=== PATIENT | female | born 1950 | race Caucasian/White ===

== ENCOUNTER 2022-09-25 06:13 | Inpatient (IN) ==
[2022-09-19 13:28] LABS: Basophils # (Auto) 0.05 K/mcL (0.00-0.30); Basophils % (Auto) 0.6 % (0.0-2.0); Eosinophils # (Auto) 0.16 K/mcL (0.00-0.70); Eosinophils % (Auto) 1.8 % (0.0-7.0); Hematocrit 41.3 % (34.1-44.9); Hemoglobin 13.8 g/dL (11.2-15.7); Lymphocytes # (Auto) 1.89 K/mcL (1.50-4.80); Lymphocytes % (Auto) 21.7 % (15.5-49.0); Mean Cell Volume 89.6 fL (80.0-100.0); Mean Corpuscular HGB Conc 33.4 g/dL (31.0-36.0); Mean Platelet Volume 11.6 fL (8.8-12.5); Monocytes # (Auto) 0.55 K/mcL (0.10-0.90); Monocytes % (Auto) 6.3 % (1.0-12.0); Neutrophils % (Auto) 69.1 % (38.0-78.0); Platelet Count 207 K/mcL (140-440); RBC 4.61 M/mcL (3.59-5.38); Red Cell Distribution Width 12.8 % (11.5-14.5); WBC 8.7 K/mcL (4.5-11.0)
[2022-09-19 13:55] LABS: ALT/SGPT 6 U/L (<40); AST/SGOT 21 U/L (<32); Albumin 4.3 gm/dL (3.2-5.2); Alkaline Phosphatase 58 U/L (39-117); Bilirubin,Total 0.5 mg/dL (0.1-1.0); Blood Urea Nitrogen 13 mg/dL (8-23); Calcium 9.2 mg/dL (8.6-10.4); Carbon Dioxide 26 mmol/L (22-30); Chloride 105 mmol/L (96-108); Globulin 2.2 gm/dL (2.2-3.7); Glomerular Filtration Rate 88; Glucose 90 mg/dL (70-105)
[2022-09-19 15:10] LABS: Prothrombin Time 13.6 sec (11.9-14.5)
--- NOTE | 2022-09-20 13:48 | EKG ---
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
[2022-09-20 14:25] LABS: Appearance,Urine CLEAR (Clear); Bacteria,Urine FEW /hpf (0); Bilirubin,Urine NEGATIVE (Negative); Color,Urine LT. YELLOW; Culture Indicated,Urine Yes; Glucose,Urine (UA) NEGATIVE (Negative); Ketones,Urine NEGATIVE (Negative); Leukocyte Esterase,Urine SMALL /uL (Negative); Mucus,Urine MOD /hpf; Nitrate,Urine NEGATIVE (Negative); PH,Urine 7.5 (5.0-9.0); Protein,Urine NEGATIVE (Negative); Sperm,Urine ABSENT /hpf (Absent); Urine Blood NEGATIVE ery/mcL (Negative); Urine Granular Cast 1 /lph (0-0); Urine RBC 1 /hpf (0-3); Urine Squamous Epithelial Cell 1 /hpf (0-4); Urine WBC 2 /hpf (0-4); Urobilinogen,Urine Normal
[~2022-09-25 06:13] MED LIST: IPRATROPIUM/ALBUTEROL 3 ML AMPUL.NEB NEB PRN; SCOPOLAMINE 1 PATCH PATCH TOPICAL PRN; ceFAZolin 2 GM in DEXTROSE 5% IN WATER 50 ML IV SCH
[2022-09-25] MEDS ORDERED: ONDANSETRON 4 MG/2 ML VIAL ONE (09:47)
[2022-09-25] MEDS ORDERED: MAGNESIUM SULFATE 4 GM/100 ML BAG IV ONE (09:47)
[2022-09-25] MEDS ORDERED: LIDOCAINE HCL/PF 100 MG/5 ML SYRINGE IV ONE (09:47)
[2022-09-25] MEDS ORDERED: MIDAZOLAM 2 MG/2 ML VIAL ONE (09:47)
[2022-09-25] MEDS ORDERED: ePHEDrine 50 MG/5 ML SYRINGE (ANEST) IV ONE (09:47)
[2022-09-25] MEDS ORDERED: PROPOFOL 200 MG/20 ML VIAL IV ONE (09:47)
[2022-09-25] MEDS ORDERED: SUCCINYLCHOLINE 20 MG/ML ML IV ONE (09:47)
[2022-09-25] MEDS ORDERED: HYDROmorphone 0.5 MG/0.5 ML SYRINGE ONE (09:47)
[2022-09-25] MEDS ORDERED: PHENYLephrine 1 MG/10 ML SYRINGE (ANEST) ONE (09:47)
[2022-09-25] MEDS ORDERED: DEXAMETHASONE 10 MG/ML VIAL ONE (09:47)
[2022-09-25] MEDS ORDERED: ceFAZolin 1 GM VIAL ONE (09:47)
[2022-09-25] MEDS ORDERED: TRANEXAMIC ACID 1,000 MG/10 ML VIAL ONE (09:47)
[2022-09-25] MEDS ORDERED: fentaNYL 100 MCG/2 ML VIAL IV ONE (09:47)
[2022-09-25] MEDS ORDERED: KETAMINE 50 MG/ML Syringe (ANEST) IV ONE (09:47)
[2022-09-25] MEDS ORDERED: THROMBIN (BOVINE) 5,000 UNIT VIAL TOPICAL ONE (10:00)
[2022-09-25] MEDS ORDERED: BUPIVACAINE 0.25% 50 ML VIAL IJ ONE (10:00)
[2022-09-25] MEDS ORDERED: GELATIN SPONGE,ABSORBABLE 1 EACH SPONGE TOPICAL ONE (10:00)
[2022-09-25] MEDS ORDERED: VANCOMYCIN 1 GM VIAL TOPICAL SCH (13:45)
--- NOTE | 2022-09-25 14:01 | EKG ---
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
[2022-09-25] MEDS ORDERED: ONDANSETRON 4 MG ODT TABLET SL PRN (14:02)
[2022-09-25] MEDS ORDERED: PROMETHAZINE 25 MG/ML VIAL IV PRN (14:02)
[2022-09-25] MEDS ORDERED: ONDANSETRON 4 MG/2 ML VIAL IV PRN (14:02)
[2022-09-25] MEDS ORDERED: FUROSEMIDE 20 MG TABLET PO PRN (14:06)
[2022-09-25] MEDS ORDERED: ONDANSETRON (PP) 4 MG TABLET PO PRN (14:06)
[2022-09-25] MEDS ORDERED: valACYclovir 500 MG TABLET PO PRN (14:06)
[2022-09-25] MEDS ORDERED: POTASSIUM CHLORIDE 8 MEQ PO PRN (14:18)
[2022-09-25] MEDS ORDERED: LIDOCAINE 1.8% TOPICAL PRN (14:22)
[2022-09-25] MEDS ORDERED: HYDROmorphone 0.5 MG/0.5 ML SYRINGE IV PRN (14:25)
[2022-09-25] MEDS ORDERED: ACETAMINOPHEN 1,000 MG/100 ML BAG IV ONE (14:25)
[2022-09-25] MEDS ORDERED: METOPROLOL TARTRATE 5 MG/5 ML VIAL IV PRN (14:25)
[2022-09-25] MEDS ORDERED: fentaNYL 100 MCG/2 ML VIAL IV PRN (14:25)
[2022-09-25] MEDS ORDERED: LACTATED RINGERS 250 ML IV PRN (14:25)
[2022-09-25] MEDS ORDERED: METHOCARBAMOL 1,000 MG/10 ML VIAL IV PRN (14:25)
[2022-09-25] MEDS ORDERED: IPRATROPIUM/ALBUTEROL 3 ML AMPUL.NEB NEB PRN (14:25)
[2022-09-25] MEDS ORDERED: MEPERIDINE 25 MG/ML VIAL IV PRN (14:25)
[2022-09-25] MEDS ORDERED: LABETALOL 5 MG/ML ML IV PRN (14:25)
[2022-09-25] MEDS ORDERED: NALOXONE HCL 0.4 MG/ML VIAL IV PRN (14:25)
[2022-09-25] MEDS ORDERED: FLUMAZENIL 0.1 MG/ML ML IV PRN (14:25)
[2022-09-25] MEDS ORDERED: LACTATED RINGERS 1,000 ML IV SCH (14:30)
[2022-09-25] MEDS: 0.9 % SODIUM CHLORIDE 1,000 ML IV SCH (16:56)
[2022-09-25] MEDS: CARBIDOPA/LEVODOPA 25/100 TABLET PO SCH ×2 (17:23→19:58)
[2022-09-25] MEDS: ceFAZolin 1 GM VIAL IV SCH (19:00)
[2022-09-25] MEDS: HYDROCODONE/APAP 7.5/325MG TABLET PO PRN (19:58)
[2022-09-25] MEDS: DOCUSATE SODIUM 100 MG CAPSULE PO SCH (19:58)
[2022-09-25] MEDS: 0.9 % SODIUM CHLORIDE 10 ML SYRINGE IV SCH (22:09)
[2022-09-25] MEDS: METHOCARBAMOL 750 MG TABLET PO PRN (22:22)
[2022-09-26] MEDS: HYDROCODONE/APAP 7.5/325MG TABLET PO PRN ×4 (00:09→19:43)
[2022-09-26] MEDS: 0.9 % SODIUM CHLORIDE 1,000 ML IV SCH ×3 (02:14→22:34)
[2022-09-26] MEDS: ceFAZolin 1 GM VIAL IV SCH (02:15)
[2022-09-26 06:45] LABS: Hemoglobin 10.8 g/dL (11.2-15.7)
[2022-09-26 07:05] LABS: Blood Urea Nitrogen 11 mg/dL (8-23); Calcium 7.5 mg/dL (8.6-10.4); Carbon Dioxide 24 mmol/L (22-30); Chloride 105 mmol/L (96-108); Glomerular Filtration Rate 98; Glucose 86 mg/dL (70-105)
--- NOTE | 2022-09-26 07:28 | General Surgery Progress Note ---
SUBJECTIVE Subjective Patient information: Note initiated : 09/26/22 at 7:27 am Service Date, if different from initiated Date: [] Patient: Omaira Garvey 72 y/o F admitted on 09/25/22 for L4-5 Extreme Lateral Interbody Fusion W/Posterior . Chief Complaint: [] Principal diagnosis: stenosis Interval history: negative Constitutional Vitals: Vital Signs Temp Pulse Resp BP Pulse Ox O2 Del Method O2 Flow Rate 97.7 F 77 20 128/61 96 Room Air 0 09/26/22 02:55 09/26/22 02:55 09/26/22 02:55 09/26/22 02:55 09/26/22 02:55 09/26/22 02:55 09/25/22 19:35 Period Temp Pulse Resp BP Sys/Cooper Pulse Ox O2 Del Method O2 Flow Rate Last 24 Hr 97.7 F-101.7 F 77-94 0-22 88-149/48-75 88-97 Nasal Cannula- Simple Mask 0-6 Intake and Output 09/25/22 09/26/22 09/26/22 19:59 03:59 11:59 Intake Total 2900 1130 Output Total 1270 290 75 Balance 1630 840 -75 Weight 217 lb 8 oz Intake & Output: Intake & Output 09/25/22 09/26/22 09/26/22 19:59 03:59 11:59 Intake Total 2900 1130 Output Total 1270 290 75 Balance 1630 840 -75 Weight 217 lb 8 oz Intake: IV 100 930 Sodium Chloride 0.9% 1,000 ml @ 930 100 mls/hr IV .Q10H [facility] Rx#: [id number] Oral 200 IV - Manual Only 2800 Output: Drainage 20 15 0 Lower Back 20 15 0 Urine Catheter Amount 1150 Uretheral (Cleaning) 550 Void Amount 275 75 Estimated Blood Loss 100 Other: Urine Appearance Clear Clear Clear Uretheral (Cleaning) Clear Urine Color Dark Yellow Dark Yellow Dark Yellow Uretheral (Cleaning) Yellow Additional findings Additional findings: neuro intact A/P Assessment and plan (1) Spinal stenosis at L4-L5 level: Status: Acute Comment: post op Plan mobilize with pt Time Spent With Patient Time: Total time spent is greater than 50% in coordination of care (as documented) at patient's floor/unit and/or counseling patient:
--- NOTE | 2022-09-26 07:30 | Discharge Summary ---
Discharge Provider Provider IMPORTANT FOLLOW-UP INFORMATION FOR PCP: bing Patient information: Note initiated : 09/26/22 at 7:28 am Service Date, if different from initiated Date: [] Patient: Omaira Garvey 72 y/o F admitted on 09/25/22 for L4-5 Extreme Lateral Interbody Fusion W/Posterior . Chief Complaint: [] Date of admission: 09/25/22 06:13 Discharge date: 09/27/22 Primary care physician: Beltran Kirkpatrick DO Admitting clinician: Aditya Clark COURSE Hospital Course Hospital course: uneventful Discharge diagnosis: spinal stenosis with instability Time Spent with Patient Time attestation: Total time spent providing and/or coordinating discharge services: Time spent: Less than 30 minutes Physical Examination Exam Incision healing: Yes Weight bearing status: full Discharge Instructions - Spine Patient Instructions Spine Protocol: Limit bending and stooping. No heavy lifting. Wear brace/collar at all times except when showering and sleeping. Additional Dressing Instructions: May Shower 48 hours post-operative and replace with dry dressing after shower. Discharge Plan Patient/Caregiver Discharge Instructions Activity: ambulate only with your walker Instructions: Hydrocodone/Acetaminophen (By mouth), Lumbar Spinal Fusion (DC) Activity Restrictions/Additional Instructions: Patient Instructions Limit bending, twisting, and stooping. No heavy lifting. Wear brace at all times except when showering and sleeping. May Shower tomorrow, September 27, and replace with dry dressing after shower. Every day, remove old gauze, then replace with new 4x4 gauze, secure with paper tape. Your prescription is with your discharge information. Take your prescription, photo ID, and insurance cards to cotton picker operator your medication. Resume home medications. If you have any questions or concerns call your orthopedic surgeon before going to the emergency room. [facility] has a strategy execution consultant physician 24 hours per day/7 days per week and can be reached at [phone]. Call for fevers above 100.5 or pain not controlled by medication. This discharge packet is provided to you to help keep you informed about your care. We want to ensure you get everything you need when you go home. You will also be receiving a call from us in a few days to follow up with you and see how you are doing since your discharge. This gives us a chance to listen to any concerns you maybe experiencing since you were discharged or any additional needs you may have, as well as providing us feedback on your care experience. We strive to always provide excellent care and thank you for your feedback and for choosing [facility]. Prescriptions: New hydrocodone-acetaminophen 7.5-325 mg Tablet 1 - 2 tab PO Q4HP PRN (Reason: Per Pain Protocol) Qty: 0 0RF Continued propranolol 80 mg capsule,extended release 24hr 80 mg PO QDAY Qty: 90 1RF fenofibrate nanocrystallized 145 mg tablet 145 mg PO QDAY Qty: 90 1RF diclofenac sodium 1 % gel 2 g TOPICAL DAILYP PRN (Reason: Pain) multivitamin [Daily Multi-Vitamin] Tablet 1 tab PO DAILY cholecalciferol (vitamin D3) 2,000 unit capsule 2,000 unit PO QDAY carbidopa-levodopa 25-100 mg tablet 1 tab PO TID cyanocobalamin (vitamin B-12) 2,500 mcg Tablet, Sublingual 2,500 mcg SUBLINGUAL DAILY ascorbic acid (vitamin C) [Vitamin C] 500 mg Tablet 500 mg PO DAILY hydrocodone-acetaminophen 5-325 mg tablet 1 tab PO Q6HP PRN (Reason: pain) valacyclovir 500 mg tablet 500 mg PO BIDP PRN (Reason: cold sores) potassium chloride 8 mEq tablet extended release 8 meq PO DAILYP PRN (Reason: Edema) levothyroxine [Euthyrox] 50 mcg tablet 50 mcg PO ACB furosemide [Lasix] 20 mg tablet 10 mg PO DAILYP PRN (Reason: Edema) ondansetron 4 mg tablet,disintegrating 4 mg PO Q8HP PRN (Reason: nausea and vomiting) lidocaine 1.8 % adhesive patch,medicated 1 patch TOPICAL DAILYP PRN (Reason: Pain) Rx Instructions: leave on most painful area for 12 hrs Discontinued naproxen sodium 220 mg tablet 220 mg PO DAILYP PRN (Reason: Pain) Rx Instructions: HAS STOPPED FOR SURGERY ON 09/25/22 No Action Paxlovid (EUA) 300 mg (150 mg x 2)-100 mg tablets,dose pack See Rx Instructions PO .COMPLEX Qty: 30 0RF Rx Instructions: take TWO 150 mg tablets of nirmatrelvir with ONE 100 mg tablet of ritonavir twice daily for 5 days PO Follow Up Plan Follow up with: Paola Carvajal PA-C [Physician Grinder Setup Operator] - 02/28/23 11:00 am Patient Disposition: Home, Self-Care Discharge Orders: Discharge Order (Routine); Ordered 09/27/22 Ordered By: Aditya Clark Discharge Comment: Pt. d/c home with family. Pending Pending Pending: Resuscitation Status Resuscitate (Full Code) Diet Regular Diet Start SunSep 25 1403 Hydrocodone Bitart/Acetaminophen (Hydrocodone/Apap 7.5/325mg Tablet) 1 - 2 tab PO Q4HP PRN; Protocol PRN Reason: Per Pain Protocol Last Admin: 09/26/22 00:09 Dose: 2 tab Documented By: Admin: 09/25/22 19:58 Dose: 1 tab Documented By: KRYSTAL Carbidopa/Levodopa (Carbidopa/Levodopa 25/100 Tablet) 1 tab PO TID COUNT INCLUDES THE [facility] Last Admin: 09/25/22 19:58 Dose: 1 tab Documented By: Admin: 09/25/22 17:23 Dose: 1 tab Documented By: [email or web address] Docusate Sodium (Docusate Sodium 100 Mg Capsule) 100 mg PO BID COUNT INCLUDES THE [facility] Last Admin: 09/25/22 19:58 Dose: 100 mg Documented By: [email or web address] Sodium Chloride (Sodium Chloride 0.9%) 1,000 mls @ 100 mls/hr IV .Q10H COUNT INCLUDES THE [facility] Last Admin: 09/26/22 02:14 Dose: 100 mls/hr Documented By: [email or web address] Infusion: 09/26/22 02:14 Dose: 0 mls/hr Documented By: Admin: 09/25/22 16:56 Dose: 100 mls/hr Documented By: [email or web address] Methocarbamol (Methocarbamol 750 Mg Tablet) 750 mg PO Q6HP PRN PRN Reason: Muscle Spasm Last Admin: 09/25/22 22:22 Dose: 750 mg Documented By: KRYSTAL Sodium Chloride (0.9 % Sodium Chloride 10 Ml Syringe) 10 ml IV Q8 COUNT INCLUDES THE [facility] Last Admin: 09/25/22 22:09 Dose: Not Given Documented By: KRYSTAL Shift Summary 09/26/22 05:22 Shift Summary by Marti Syed A&OX4, 1 assist to log roll then sits up, gait belt, FWW from bed to BSC then back to bed L leg weaker than R when transferring, which is opposite prior to procedure. CSM check L leg weaker than R leg Medicated with Hydrocodone 7.5/325mg I-II tablets (Q4HP) 19:58 1 tablet for 6/10 back ache, 2 tablets 00:05 for 710 was more effective Medicated with Robaxin 750mg PO (Q6HP) at 22:22 not effective IV 18G L FA-running NS at 100ml/hr TIBURCIO drain-right side of back. 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 Clark performed L4-5 lateral interbody fusion with posterior decompression and instrumented fusion 09/25 06:13 Initially admitted prior to surgery for Post-op Spine Surgery Per Dr. Clark,,, History of Present Illness(Lumbar) ... She continues to have complaints of lumbar pain radiating down the right leg. She also complains of right leg numbness and tingling. Omaira reports that she is not able to stand longer than 10 minutes. Patient states she is taking naproxen daily and she has a prescription for Hydrocodone... [facility]maira Garvey A [facility] 1950 [id number] 09/25/22 17:18 - [facility] [id number] : 1950 Patient Age: 72 Pt returned from surgery around 1530. Has been on 2L, VS have been stable. Dressing CDI to back and left side. TIBURCIO in place. Alert and oriented, but drowsy. Facial edema from extending surgery. Dave hose in place. Cleaning emptied of 600 around 1430, then removed. Initialized on 09/26/22 05:22 - END OF NOTE
--- NOTE | 2022-09-26 08:11 | Operative Note ---
DATE OF OPERATION: 09/25/2022 DATE OF PROCEDURE: 09/25/2022 PREOPERATIVE DIAGNOSES: 1. Lumbar stenosis with instability, L4-L5. 2. Retained hardware in the form of an X-Stop fixation device POSTOPERATIVE DIAGNOSES: 1. Lumbar stenosis with instability, L4-L5. 2. Retained hardware in the form of an X-Stop fixation device OPERATION PROPOSED: 1. Anterior interbody fusion via lateral retroperitoneal approach, L4-L5 with application of prosthetic device interbody space at L4-L5. 2. Posterior nonsegmental instrumentation using [employer] pedicle screw construct. 3. Lumbar decompression with decompression of central canal, lateral recess, and neural foramen at L4-L5. 4. Posterior/posterolateral fusion, L4-L5. 5. Removal of nonsegmental instrumentation, L4-L5. OPERATION PERFORMED: Same. SURGEON: Aditya Clark M.D. METAL BONDING WORKER: Paola Carvajal PA-C. This providers expertise and technical skill were required throughout the case. The KYLER assisted with preoperative coordination, intraoperative retraction, wound closure, and dressing and splint application, as well as postoperative documentation and care coordination. INDICATIONS: This is a lady who has had a previous surgical procedure [facility]. They had placed an X- Stop for temporary relief, but she now has debilitating claudication symptoms. She has stenosis with a spondylolisthesis at L4-L5, and she elected to proceed with a decompression and fusion. DESCRIPTION OF PROCEDURE: Informed consent was obtained. She was taken to the operating room where she was provided with appropriate anesthetic and prophylactic antibiotics. She was carefully positioned. An incision was made laterally over her left flank and was advanced into the retroperitoneal space. I advanced through the psoas with an EMG monitor trocar. I then sequentially dilated and placed a self-retaining retractor. The disc was incised. I extensively curetted the disc space, debriding all disc material. I trialed a variety of components, selected a 10 x 22 x 50 mm XLIF cage from [employer]. It was packed with morselized bone graft and impacted into the site prepared for it. The wounds were irrigated and closed. The patient was turned to the prone position. A midline incision was made. I then dissected down along the midline. I debrided soft tissue from around this interspinous implant. I then removed the X-Stop implant. I then removed the inferior one-half spinous process and lamina of L4 and the leading edge of L5. The hypertrophied medial border of the facet joint was debrided. There was a lot of scarred in ligamentum flavum that was left in place, but this had been thinned significantly and the dura seemed very adequately decompressed as well as our indirect decompression. I then dissected laterally. Alon muscle splitting incisions were made in the fascia. I advanced a Jamshidi type needle into the pedicle at L4 and L5, both on the right and on the left. A guidewire was placed, and I tapped in place with appropriate length pedicle screws. A molly was applied to the top-loading pedicle screws. I had used a high-speed bur to decorticate the facet joints and to debride and decorticate the posterolateral aspect of the spine. After thorough irrigation, I packed morcellized graft into and against the decorticated posterolateral aspect was applied to allow for fusion. I compressed across the interbody graft and tightened and torqued the molly into the top-loading pedicle screws. The wounds were closed over a deep drain with an 0 Vicryl in interrupted fashion, 2-0 Vicryl inverted deep dermal and a running subcuticular. Procedure was tolerated well. No complications. ESTIMATED BLOOD LOSS: 100 mL. GDD:chai Job ID: [id number] Doc ID: [id number] Aditya Clark MD
[2022-09-26] MEDS: LEVOTHYROXINE 50 MCG TABLET PO SCH (08:12)
[2022-09-26] MEDS: DOCUSATE SODIUM 100 MG CAPSULE PO SCH ×2 (08:12→21:19)
[2022-09-26] MEDS: CARBIDOPA/LEVODOPA 25/100 TABLET PO SCH ×3 (08:12→21:19)
[2022-09-26] MEDS: 0.9 % SODIUM CHLORIDE 10 ML SYRINGE IV SCH ×3 (08:14→21:23)
[2022-09-26] MEDS ORDERED: PROPRANOLOL 80 MG CAP.XL.24H PO SCH ×2 (09:00→21:00)
[2022-09-26] MEDS ORDERED: FENOFIBRATE 43 MG CAPSULE PO SCH ×2 (09:00→21:00)
[2022-09-27] MEDS: HYDROCODONE/APAP 7.5/325MG TABLET PO PRN ×3 (00:05→10:30)
[2022-09-27] MEDS: 0.9 % SODIUM CHLORIDE 10 ML SYRINGE IV SCH (05:39)
[2022-09-27] MEDS: 0.9 % SODIUM CHLORIDE 1,000 ML IV SCH (05:40)
[2022-09-27 07:01] LABS: Hematocrit 31.9 % (34.1-44.9); Hemoglobin 10.4 g/dL (11.2-15.7)
[2022-09-27] MEDS: METHOCARBAMOL 750 MG TABLET PO PRN (10:30)
[2022-09-27] MEDS: CARBIDOPA/LEVODOPA 25/100 TABLET PO SCH (10:30)
[2022-09-27] MEDS: DOCUSATE SODIUM 100 MG CAPSULE PO SCH (10:30)
[2022-09-27] MEDS: LEVOTHYROXINE 50 MCG TABLET PO SCH (10:31)
== END 2022-09-27 11:33 | disposition home or self-care (01) | DRG 455 ==
LOC: MEDSUR 06:13
PROVIDERS: ADMIT Orthopaedic Surgery Orthopaedic Surgery of the Spine; ATTEND Orthopaedic Surgery Orthopaedic Surgery of the Spine